=== PATIENT | female | born 1960 | race Caucasian/White ===

== ENCOUNTER 2016-04-24 19:22 | Inpatient (IN) | payer OTHER ==
--- NOTE | 2016-04-24 19:57 | EDPHY ---
H & P Time Seen by Provider: 04/24/16 19:52 HPI/ROS: CHIEF COMPLAINT: Urinary symptoms, fever, flank pain. HISTORY OF PRESENT ILLNESS: The patient is a 56-year-old female with a history of recurrent UTIs and sepsis who presents with fever, dysuria, and urinary urgency since Friday. She was started on Tetracycline on Friday by her doctor in [place] but has seen little improvement and believes she may be allergic to it. She flew in from [place] today and has vomited 4 times. She admits associated bilateral flank pain and bladder pressure. She last measured her fever at 102. REVIEW OF SYSTEMS: A complete 10-point review of systems was performed and is negative except for those items mentioned in the HPI. Past Medical/Surgical History: Recurrent UTIs. Social History: Former smoker, from [place]. Smoking Status: Former smoker Physical Exam: General Appearance: Alert, no distress, non-toxic appearing. Eyes: Pupils equal and round, no conjunctival pallor or injection ENT, Mouth: Mucous membranes dry Neck: Normal inspection Respiratory: Lungs are clear to auscultation Cardiovascular: Regular rate and rhythm Gastrointestinal: Abdomen is soft and non-tender Back: Left CVA tenderness. Neurological: A&O, nonfocal, normal gait Skin: Warm and dry, no rash Extremities: Nontender, no pedal edema Psychiatric: Mood and affect normal Constitutional: Initial Vital Signs Temperature (C) 39.2 C H 04/24/16 19:29 Heart Rate 150 H 04/24/16 19:29 Respiratory Rate 18 04/24/16 19:29 Blood Pressure 164/105 H 04/24/16 19:29 O2 Sat (%) 90 L 04/24/16 19:29 O2 Delivery Mode Nasal Cannula O2 (L/minute) 2 Allergies/Adverse Reactions: ciprofloxacin [From Cipro] Allergy (Verified 04/24/16 19:35) ciprofloxacin HCl [From Cipro] Allergy (Verified 04/24/16 19:35) fluticasone propionate [From Advair Diskus] Allergy (Verified 04/24/16 19:35) Penicillins Allergy (Verified 04/24/16 19:35) salmeterol xinafoate [From Advair Diskus] Allergy (Verified 04/24/16 19:35) Sulfa (Sulfonamide Antibiotics) Allergy (Verified 04/24/16 19:35) Home Medications: Medication Instructions Recorded ALPRAZOLAM 0.25 mg PO Q8H PRN 04/24/16 Ascorbic Acid [Vitamin C 500 mg 1,000 mg PO DAILY 04/24/16 (*)] Cyanocobalamin [Vitamin B12 (*)] 1,000 mcg PO DAILY 04/24/16 Herbals/Supplements -Info Only 1 ea PO DAILY 04/24/16 Levothyroxine Sodium 50 mcg PO DAILY 04/24/16 Losartan Potassium [Cozaar 50 mg 50 mg PO DAILY 04/24/16 (*)] Cephalexin [Keflex (*)] 500 mg PO TID #21 cap 04/26/16 Hydrocodone/APAP 5/325 [[place] 1 tab PO BID PRN #12 tab 04/26/16 5/325 (*)] Ondansetron Odt [Zofran Odt 4 mg 4 mg PO Q4HRS PRN #14 tab 04/26/16 (*)] Medical Decision Making ED Course/Re-evaluation: This patient presents with a probable urinary tract infection. She meets SIRS criteria. UA ordered. An IV was established and labs ordered. 650mg PO Tylenol administered for fever along with 1gm IV Rocephin for infection, 1L IV saline for hydration, and 4mg IV Zofran for nausea. Patient's urine consistent with UTI partially treated by Tetracycline. Lactic acid normal at 1.6. She does not meet the severe sepsis criteria. Given persistent vomiting and pyelonephritis not treated with outpatient antibiotics, she will need to be admitted for observation. Dr. Manning was consulted and will admit the patient to the [facility]. Differential Diagnosis: Differential diagnosis includes UTI, pneumonia, cholecystitis, influenza, cellulitis. - Data Points Laboratory Results: Laboratory Results 04/24/16 20:35 04/24/16 20:35 Microbiology Results: MICROBIOLOGY 04/24/16 21:00 Blood Blood Culture - Preliminary 04/24/16 20:35 Blood Blood Culture - Preliminary 04/24/16 20:00 Urine,Clean Catch Urine Culture - Preliminary Medications Given: Discontinued Medications Acetaminophen (Tylenol) 650 mg PO EDNOW ONE Stop: 04/24/16 20:06 Last Admin: 04/24/16 20:36 Dose: 650 mg Acetaminophen (Tylenol) 650 mg PO Q4HRS PRN PRN Reason: Pain, Mild/Fever, Can Take PO Stop: 10/21/16 22:04 Last Admin: 04/25/16 01:27 Dose: 650 mg Hydrocodone Bitart/Acetaminophen ([place] 5/325) 2 tab PO Q4 PRN PRN Reason: Pain, Severe Stop: 05/06/16 04:56 Last Admin: 04/26/16 05:02 Dose: 2 tab Alprazolam (Xanax) 0.25 mg PO Q8H PRN PRN Reason: Anxiety Stop: 10/21/16 22:11 Last Admin: 04/25/16 22:02 Dose: 0.25 mg Ascorbic Acid (Vitamin C) 1,000 mg PO DAILY JAHAIRA Stop: 10/22/16 08:59 Last Admin: 04/26/16 07:59 Dose: 1,000 mg Sodium Chloride (Ns) 1,000 mls @ 0 mls/hr IV ONCE ONE PRN Reason: Wide Open Stop: 04/24/16 20:04 Last Admin: 04/24/16 20:41 Dose: 1,000 mls Ceftriaxone Sodium/Dextrose (Rocephin 1 Gm (Premix)) 50 mls @ 100 mls/hr IV EDNOW ONE PRN Reason: Protocol Stop: 04/24/16 20:53 Last Admin: 04/24/16 21:02 Dose: 50 mls Ceftriaxone Sodium/Dextrose (Rocephin 1 Gm (Premix)) 50 mls @ 100 mls/hr IV DAILY JAHAIRA PRN Reason: Protocol Stop: 05/25/16 08:59 Last Admin: 04/26/16 07:59 Dose: 50 mls Sodium Chloride (Ns) 1,000 mls @ 150 mls/hr IV CONT JAHAIRA Stop: 10/21/16 22:14 Last Admin: 04/26/16 05:03 Dose: 1,000 mls Ketorolac Tromethamine (Toradol) 15 mg IVP Q6HRS JAHAIRA Stop: 04/30/16 11:59 Last Admin: 04/26/16 08:00 Dose: 15 mg Levothyroxine Sodium (Synthroid) 50 mcg PO DAILY06 JAHAIRA Stop: 10/22/16 05:59 Last Admin: 04/26/16 07:59 Dose: 50 mcg Morphine Sulfate (Morphine) 6 mg IVP EDNOW ONE Stop: 04/24/16 21:00 Last Admin: 04/24/16 21:07 Dose: 6 mg Morphine Sulfate (Morphine) 1 - 2 mg IVP Q4HRS PRN PRN Reason: Pain, Severe Unable to Take PO Stop: 05/04/16 22:08 Last Admin: 04/25/16 08:58 Dose: 2 mg Ondansetron HCl (Zofran) 4 mg IVP EDNOW ONE Stop: 04/24/16 20:06 Last Admin: 04/24/16 20:30 Dose: 4 mg Ondansetron HCl (Zofran) 4 mg IVP Q4HRS PRN PRN Reason: Nausea/Vomiting, Can't Take PO Stop: 10/21/16 22:04 Last Admin: 04/24/16 23:14 Dose: 4 mg Oxycodone HCl (Oxycodone Ir) 5 mg PO Q4 PRN PRN Reason: Pain, Severe Able to Take PO Stop: 05/05/16 03:17 Last Admin: 04/25/16 17:52 Dose: 5 mg Oxycodone HCl (Oxycodone Ir) 5 - 15 mg PO Q4 PRN PRN Reason: Pain, Severe Able to Take PO Stop: 05/05/16 03:17 Last Admin: 04/25/16 22:03 Dose: 10 mg Phenazopyridine HCl (Pyridium) 100 mg PO Q6 PRN PRN Reason: BLADDER SPASM Stop: 10/22/16 07:18 Last Admin: 04/26/16 00:11 Dose: 100 mg Vitamin B Complex (Vitamin B12) 1,000 mcg PO DAILY JAHAIRA Stop: 10/22/16 08:59 Last Admin: 04/26/16 08:00 Dose: 1,000 mcg Departure - Departure Disposition: [facility] Inpatient Acute Clinical Impression: Pyelonephritis Condition: Fair Report Scribed for: Yadira Ortiz Report Scribed by: Surjit Fallon Date of Report: 04/24/16 Time of Report: 19:53 Physician Review and Approval Statement: 04/24/16 20:00 Portions of this note were transcribed by a biomedical equipment tech. I personally performed a history, physical exam, medical decision making, and confirmed accuracy of information the transcribed note.
[2016-04-24] MEDS ORDERED: NS 1,000 ML IV ONE (20:03)
[2016-04-24] MEDS ORDERED: ONDANSETRON 4 MG/2 ML VIAL IVP ONE (20:05)
[2016-04-24] MEDS ORDERED: ACETAMINOPHEN 325 MG TAB PO ONE (20:05)
[2016-04-24 20:13] LABS: COLOR AMBER; LEUKOCYTE ESTERASE,URINE NEGATIVE (NEGATIVE); NITRITE,URINE NEGATIVE (NEGATIVE)
[2016-04-24 20:19] LABS: MUCUS TRACE /lpf (NONE-1+)
[2016-04-24 20:56] LABS: % IMMATURE GRANULYOCYTES 0.3 % (0.0-1.1); ABSOLUTE IMMATURE GRANULOCYTES 0.03 10^3/uL (0.00-0.10); ADD DIFF? NO; ADD MORPH? NO; ADD SCAN? NO; ATYPICAL LYMPHOCYTE FLAG 0 (0-99); FRAGMENT RBC FLAG 0 (0-99); HEMATOCRIT 36.8 % (38.0-47.0); HEMOGLOBIN 12.8 g/dL (12.6-16.3); LEFT SHIFT FLG 0 (0-99); LIPEMIA HEMOLYSIS FLAG 90 (0-99); MEAN CELL HEMOGLOBIN 32.2 pg (27.9-34.1); MEAN CELL HEMOGLOBIN CONCENTR. 34.8 g/dL (32.4-36.7); MEAN CELL VOLUME 92.5 fL (81.5-99.8); MEAN PLATELET VOLUME 9.3 fL (8.7-11.7); PLATELET CLUMPS FLAG 0 (0-99); PLATELET COUNT 279 10^3/uL (150-400); RED BLOOD CELL COUNT 3.98 10^6/uL (4.18-5.33); RED CELL DISTRIBUTION WIDTH 12.3 % (11.5-15.2)
[2016-04-24 21:12] LABS: PROTIME(PATIENT) 13.1 SEC (12.0-15.0)
[2016-04-24 21:13] LABS: APTT 29.2 SEC (23.0-38.0)
[2016-04-24 21:20] LABS: ANION GAP 12 mEq/L (8-16); BILIRUBIN,TOTAL 1.4 mg/dL (0.1-1.4); CALCIUM 9.3 mg/dL (8.5-10.4); CARBON DIOXIDE 27 mEq/l (22-31); CHLORIDE 94 mEq/L (97-110); CREATININE 0.7 mg/dL (0.6-1.0); GLOMERULAR FILTRATION RATE > 60; GLUCOSE 103 mg/dL (70-100); SODIUM 133 mEq/L (134-144)
[2016-04-24] MEDS ORDERED: ONDANSETRON 4 MG/2 ML VIAL IVP PRN (22:05)
[2016-04-24] MEDS ORDERED: ONDANSETRON DISINTEGRATING 4 MG TAB PO PRN (22:05)
[2016-04-24] MEDS ORDERED: ACETAMINOPHEN 325 MG TAB PO PRN (22:05)
[2016-04-24] MEDS ORDERED: diphenhydrAMINE 25 MG CAP PO PRN (22:10)
[2016-04-24] MEDS ORDERED: HYDROCODONE/APAP 5/325 TAB PO PRN (22:12)
[2016-04-24] MEDS ORDERED: ALPRAZolam 0.25 MG TAB PO PRN (22:12)
[2016-04-24] MEDS: NS 1,000 ML IV SCH (23:15)
--- NOTE | 2016-04-25 00:29 | GHP ---
DATE OF ADMISSION: 04/24/2016 CHIEF COMPLAINT: Sepsis, pyelonephritis. HISTORY OF PRESENT ILLNESS: a 56-year-old female with history of hypertension, hypothyroidism, and recurrent UTIs, presenting with nausea, vomiting, flank pain and fever. She is here visiting her daughter at [facility]. Her last UTI was 2 years ago. Symptoms, at this time, began 2 days ago, but the pain in her abdomen and back have worsened. She has been on tetracycline for 2 days, per her urologist in [place]. Her urologist will call her tomorrow morning with the urine culture data recently done. She has had 6 episodes of nonbloody emesis today, fevers, chills, and intermittent diarrhea for 1 week. Has had decreased appetite and p.o. intake. She reports being hospitalized 3 times with sepsis due to urinary tract infections, requiring IV gentamicin dosing. REVIEW OF SYSTEMS: I completed a 10-point review of system, negative except as noted in HPI. PAST MEDICAL HISTORY: 1. UTIs. 2. Hypertension. 3. Hypothyroidism. PAST SURGICAL HISTORY: 1. x2. 2. Partial hysterectomy, secondary to ovarian cysts. 3. Umbilical hernia. 4. Urethral dilatation as a child. SOCIAL HISTORY: Lives in [place], is visiting her daughter. Drinks alcohol socially. No illicits. No alcohol. FAMILY HISTORY: Father with an [place] and stroke. Mother with lung cancer. Maternal grandmother with pancreatitis. ALLERGIES: Ciprofloxacin, fluticasone, penicillin, formoterol, sulfas. HOME MEDICATIONS: Tylenol p.r.n., Xanax 0.25 mg p.o. q.8 p.r.n., vitamin C, losartan 50 mg daily, herbal supplement, vitamin B12. PHYSICAL EXAM: VITAL SIGNS: Temperature is 39.2, blood pressure 164/105, and is now 129/ , heart rate initially 150s, now 121, respiration 95% on 2 L, 89 on room air. GENERAL: The patient is mildly uncomfortable, diaphoretic. HEENT: PERRLA. EOMI. Dry mucous membranes. CV: Tachy. Regular. No murmurs, gallops or rubs. LUNGS: Clear to auscultation bilaterally. ABDOMEN: Soft, nontender, nondistended. Positive bowel sounds. Bilateral suprapubic tenderness. Bilateral CVA tenderness, left greater than right. MUSCULOSKELETAL : Upper and lower extremity strength 5/5. NEUROLOGIC: Cranial nerves 2 through 12 intact. PSYCHIATRIC: Alert and oriented x3. Very pleasant. LABORATORY DATA: WBC 11, hemoglobin 12, hematocrit 36, platelets 279. Sodium 133, potassium 4, chloride 94, carbon dioxide 12, BUN 20, creatinine 0.9, glucose 103, calcium 9.3. UA: 5-10 WBCs. Lactate 1.6. Coags were within normal. Urine and blood cultures are pending. ASSESSMENT AND PLAN: 1. Sepsis: Secondary to urinary source, pyelonephritis. Mildly positive urinalysis, but patient is partially treated since on tetracycline for 2 days. Her urologist has culture data that are pending, and will call her in the morning. Urine and blood cultures are pending here. Continue with ceftriaxone. Lactate is within normal. 2. Pyelonephritis: Patient has been previously hospitalized. Given significant flank pain, check ultrasound. Continue IV antibiotics. 3. Fever: Secondary to urinary source. Blood and urine cultures pending. Continue ceftriaxone. 4. Tachycardia: Initially 150s, now 120s. We will continue aggressive IV fluid resuscitation. 5. Nausea, vomiting: P.r.n. antiemetics. 6. Benign hypertension: We will hold antihypertensives given sepsis. 7. Hypothyroidism: Continue levothyroxine. 8. Chronic pain: Continue home medications. 9. Acute abdominal/flank pain: P.r.n. morphine. 10. Diet: Regular. 11. Deep vein thrombosis prophylaxis: Moderate risk. Lovenox. 12. Disposition: The patient warrants admission, given acute sepsis, with fever and leukocytosis needs IV fluids and IV antibiotics. She is wanting to go home tomorrow if possible. Follow up on outside facility urine culture studies. /[id number]/MODL MTDD
[2016-04-25] MEDS: oxyCODONE IR 5 MG TAB PO PRN ×3 (03:31→17:52)
[2016-04-25 03:57] LABS: HEMATOCRIT 33.8 % (38.0-47.0); HEMOGLOBIN 11.9 g/dL (12.6-16.3); MEAN CELL HEMOGLOBIN 31.9 pg (27.9-34.1); MEAN CELL HEMOGLOBIN CONCENTR. 35.2 g/dL (32.4-36.7); MEAN CELL VOLUME 90.6 fL (81.5-99.8); RED BLOOD CELL COUNT 3.73 10^6/uL (4.18-5.33); RED CELL DISTRIBUTION WIDTH 12.6 % (11.5-15.2)
[2016-04-25 04:09] LABS: ANION GAP 9 mEq/L (8-16); CALCIUM 8.1 mg/dL (8.5-10.4); CARBON DIOXIDE 24 mEq/l (22-31); CHLORIDE 102 mEq/L (97-110); CREATININE 0.6 mg/dL (0.6-1.0); GLOMERULAR FILTRATION RATE > 60; GLUCOSE 97 mg/dL (70-100); SODIUM 135 mEq/L (134-144); SPECIMEN HEMOLYSIS 129
[2016-04-25] MEDS: LEVOTHYROXINE 50 MCG TAB PO SCH (06:23)
[2016-04-25] MEDS: NS 1,000 ML IV SCH ×3 (06:23→22:04)
[2016-04-25] MEDS: PHENAZOPYRIDINE HCL 100 MG TAB PO PRN ×2 (08:58→17:57)
[2016-04-25] MEDS: CYANO/VITAMIN B12 1000 MCG TAB PO SCH (08:59)
[2016-04-25] MEDS ORDERED: Herbals/Supplements -Info Only PO SCH (09:00)
[2016-04-25] MEDS: ASCORBIC ACID 500 MG TAB PO SCH (09:02)
--- NOTE | 2016-04-25 09:54 | HOSPPROG ---
Hospitalist Progress Note Assessment/Plan: 56 yo F w pyelonephritis and sepsis sepsis: as evidenced by fever, leukocytosis and source (urine) lactate normal continue IVF< abx pyelonephritis: h/o frequent UTI states she has been treated w gentamicin in past suggestive of resistant organisms await urine cx [place] continue ceftriaxone pain: toradol proph: lmwh htn: continue meds dispo: should be inpatient Subjective: feels better, less nausea. case d/w dr burk Objective: Vital Signs Temp Pulse Resp BP Pulse Ox 37.4 C 105 H 18 143/98 H 92 04/25/16 08:00 04/25/16 08:00 04/25/16 08:00 04/25/16 08:00 04/25/16 08:00 Laboratory Results 04/25/16 03:40 04/25/16 03:40 04/24/16 04/25/16 04/26/16 05:59 05:59 05:59 Intake Total 1000 Balance 1000 PT 13.1 SEC (12.0-15.0) 04/24/16 20:35 INR 1.00 (0.83-1.16) 04/24/16 20:35 - Physical Exam Constitutional: no apparent distress, appears nourished Eyes: PERRL, anicteric sclera Ears, Nose, Mouth, Throat: moist mucous membranes, hearing normal Cardiovascular: regular rate and rhythym, no murmur, rub, or gallop Respiratory: no respiratory distress, no rales or rhonchi Gastrointestinal: normoactive bowel sounds, soft, non-tender abdomen Genitourinary: no bladder fullness, No medley in urethra Skin: warm, normal color Musculoskeletal: full muscle strength, no muscle tenderness Neurologic: AAOx3, sensation intact bilaterally ICD10 Worksheet Patient Problems: Problems Problem Status Onset Pyelonephritis Acute
[2016-04-25] MEDS: KETOROLAC 15 MG/1 ML SDV IVP SCH ×2 (10:31→16:54)
[2016-04-25] MEDS ORDERED: oxyCODONE IR 5 MG TAB PO PRN (20:27)
[2016-04-26] MEDS: KETOROLAC 15 MG/1 ML SDV IVP SCH ×2 (00:06→08:00)
[2016-04-26] MEDS: PHENAZOPYRIDINE HCL 100 MG TAB PO PRN (00:11)
[2016-04-26] MEDS ORDERED: HYDROCODONE/APAP 5/325 TAB PO PRN (04:57)
[2016-04-26] MEDS: NS 1,000 ML IV SCH (05:03)
[2016-04-26 07:46] VITALS: RESP 16
[2016-04-26] MEDS: LEVOTHYROXINE 50 MCG TAB PO SCH (07:59)
[2016-04-26] MEDS: ASCORBIC ACID 500 MG TAB PO SCH (07:59)
[2016-04-26] MEDS: CYANO/VITAMIN B12 1000 MCG TAB PO SCH (08:00)
--- NOTE | 2016-04-26 09:09 | HOSPPROG ---
Hospitalist Progress Note Assessment/Plan: 56 yo F w pyelonephritis and sepsis sepsis: as evidenced by fever, leukocytosis and source (urine) lactate normal continue IVF< abx pyelonephritis: h/o frequent UTI states she has been treated w gentamicin in past suggestive of resistant organisms await urine cx from urologist [place] continue ceftriaxone pain: toradol proph: lmwh htn: continue meds dispo: should be inpatient Subjective: feels better. ready for dc Objective: Vital Signs Temp Pulse Resp BP Pulse Ox 36.8 C 90 16 120/85 H 95 04/26/16 07:43 04/26/16 07:43 04/26/16 07:43 04/26/16 07:43 04/26/16 07:43 Laboratory Results 04/25/16 03:40 04/25/16 03:40 PT 13.1 SEC (12.0-15.0) 04/24/16 20:35 INR 1.00 (0.83-1.16) 04/24/16 20:35 - Physical Exam Constitutional: no apparent distress, appears nourished Eyes: PERRL, anicteric sclera Ears, Nose, Mouth, Throat: moist mucous membranes, hearing normal Cardiovascular: regular rate and rhythym, no murmur, rub, or gallop Respiratory: no respiratory distress, no rales or rhonchi Gastrointestinal: normoactive bowel sounds, soft, non-tender abdomen Genitourinary: No medley in urethra Skin: warm, normal color Musculoskeletal: full muscle strength, no muscle tenderness Neurologic: AAOx3 ICD10 Worksheet Patient Problems: Problems Problem Status Onset Pyelonephritis Acute
[2016-04-26 09:37] VITALS: BP 128/78; PULSE 85; TEMP 97.2; O2SAT 92
--- NOTE | 2016-04-26 09:39 | GDS ---
DISCHARGE DIAGNOSIS: Pyelonephritis. Please see admission history and physical by Dr. Seema Manning. The patient presented with nausea, vomiting, flank pain, and fever. She had a urine culture from an outpatient provider in the [place] area where she lives that grew out unnamed bacteria that w as essentially pansensitive. She was on ceftriaxone here, defervesced and did well. On the morning of the , she is anxious for discharge. She has multiple drug allergies and intolerances, but s he has tolerated ceftriaxone here. I will discharge her on 1 week further of cephalexin with some a ntinausea medicine, as that is her primary medication intolerance. /[id number]/MODL
--- NOTE | 2016-04-30 11:50 | PQFORM ---
PHYSICIAN QUERY FORM Needs Your Response This query form is being sent to you to assure this patient record is coded properly. Please respond to the question below: CONTRACTS PARALEGAL QUESTION: Dear Dr. Jhaveri, In review this patient medical record it is documented the patient has the diagnosis of 'Sepsis'. Patient presented with fever of 39.2 c, tachycardia 150' s, and leukocytosis.. H&P states patient admitted with 'Acute sepsis'. Hospitalist progress notes dated 04/25-04/26 document 'Sepsis-evident by fever, leukocytosis and the source urine'. After study, should the diagnosis of ' Sepsis' be included in the discharge summary? ____X__ Yes No Other more appropriate diagnosis Unable to determine Thank you SVETLANA Caicedo HIM/Coding Dept. [phone] INSTRUCTIONS FOR RESPONSE: Answer question by clicking on the "Edit Document" button. Move cursor to area below the stars. When complete, hit "Save." Click on the "Sign" button, then click "Sign" again. Type in your PIN and hit "Enter." MTDD
== END 2016-04-26 09:39 | disposition home or self-care (01) | DRG 872 ==
LOC: F1N 21:41 → OBSVTOIN 22:08
PROVIDERS: ADMIT Internal Medicine; ATTEND Internal Medicine
DX: A41.9 Sepsis, unspecified organism (principal); N12 Tubulo-interstitial nephritis, not specified as acute or chronic; I10 Essential (primary) hypertension; E03.9 Hypothyroidism, unspecified; G89.29 Other chronic pain; Z87.440 Personal history of urinary (tract) infections; Z87.891 Personal history of nicotine dependence; Z88.0 Allergy status to penicillin
CPT/HCPCS: 96365; J0696; J1885; J2405